=== PATIENT | female | born 1960 | race Caucasian/White ===

== ENCOUNTER → 2019-02-23 | Outpatient (CLI) | payer OTHER ==
[~2019-02-23] MED LIST: ASCO-178 PO; IBU800 PO; MOX400 PO; OSPE60TA2 PO; PARO-242 PO; PER PO; PRED20TA6 PO; TRAZ50TA34 PO; ULT PO; ZOL5 PO
[2019-02-23 08:17] LABS: PLATELET COUNT, AUTOMATED 259 K/uL (150-450)
== END ==
LOC: LAB 08:07
PROVIDERS: ATTEND Obstetrics & Gynecology
DX: R53.83 Other fatigue (principal)
CPT/HCPCS: 36415; 82040; 82247; 82310; 82374; 82435; 82465; 82565; 82607; 82746; 82947; 83718; 84075; 84132; 84155; 84295; 84443; 84450; 84460; 84478; 84520; 85025

== ENCOUNTER → 2019-03-16 | Outpatient (CLI) | payer OTHER ==
[~2019-03-16] MED LIST changes: -TRAZ50TA34 PO; +TRAZ50TA52 PO
--- NOTE | 2019-03-16 14:09 | RADIOLOGY IMAGING REPORT ---
FACILITY: [facility] [place] PATIENT NAME: Hailey Nolen : 1960 MR: [id number] V: [id number] EXAM DATE: ORDERING PHYSICIAN: JIMMY SNIDER TECHNOLOGIST: Location: [facility] Patient: Hailey Nolen : 1960 Visit/Account:[id number] Date of Sevice: 03/16/2019 MR SPINE LUMBAR W/O CON COMPARISON: None Additional pertinent history: Left leg radiculopathy Technique: Multiplanar multisequence lumbar spine MRI was performed without gadolinium enhancement. FINDINGS: Vertebral body heights and alignment: Mild grade 1 anterior listhesis of L4 on L5. Vertebral marrow signal: Negative. Distal thoracic cord and conus: Negative. The conus ends at L1. Surrounding soft tissues: Negative. Inspection of the disc spaces reveal the following: L5-S1: Posterior broad-based disc protrusion with facet hypertrophic changes. Mild bilateral neural f oraminal narrowing without canal stenosis. L4-L5: Mild grade 1 anterior listhesis of L4 on L5. Circumferential disc bulging with facet hypertrop hic changes. Mild bilateral neural foraminal narrowing with mild canal stenosis. L3-L4: Posterior broad-based disc protrusion with facet hypertrophic changes. No significant canal or neural foraminal narrowing. L2-L3: Negative. L1-L2: Minimal circumferential disc bulging without significant canal or neural foraminal narrowing. T12-L1: Negative. IMPRESSION: 1. Multilevel spondylitic change as discussed above. 2. Findings felt to be potentially most significant at L4-L5 with mild bilateral neural foraminal bambi rowing and mild canal stenosis. Report Dictated By: Galo Kenney MD at 03/16/2019 2:03 PM Report E-Signed By: Galo Kenney MD at 03/16/2019 2:06 PM WSN:[id number]
== END ==
LOC: MRI 00:34
PROVIDERS: ATTEND Orthopaedic Surgery
DX: M48.061 Spinal stenosis, lumbar region without neurogenic claudication (principal)
CPT/HCPCS: 72148

== ENCOUNTER → 2019-05-17 | Outpatient (CLI) | payer OTHER ==
[~2019-05-17] MED LIST changes: +SCOP1PAT2 TD
--- NOTE | 2019-05-17 13:58 | RADIOLOGY IMAGING REPORT ---
FACILITY: [facility] PATIENT NAME: ALYX PAREKH : [id number] MR: [id number] V: [id number] EXAM DATE: [id number] ORDERING PHYSICIAN: MARCO MARSHALL TECHNOLOGIST: Josee Gilmore PROCEDURE: BILATERAL DIGITAL SCREENING MAMMOGRAM WITH CAD ASSISTED INTERPRETATION & 3D TOMOSYNTHESIS REASON FOR STUDY: Screening. FAMILY HISTORY OF BREAST CANCER: Paternal grandmother in her 50's & paternal aunt in her 70's. BREAST PROCEDURES/TREATMENTS: Benign surgical biopsy of the Right breast. COMPARISON: 11/04/17, 08/14/16, 07/26/15, 05/26/13. VIEWS OBTAINED: Bilateral 2D & 3D full field CC & MLO projections. BREAST DENSITY: There are scattered areas of fibroglandular density throughout the breasts. MAMMOGRAM FINDINGS: The parenchymal pattern has remained stable allowing for difference in mammographic technique & patient positioning. IMPRESSION: BIRADS 1: Negative. DIAGNOSTIC CATEGORY 1--NEGATIVE. RECOMMENDATIONS: ROUTINE MAMMOGRAM AND CLINICAL EVALUATION. Dictated by: Fide Szymanski M.D. on 05/17/2019 at 13:14 Transcribed by: AURE on 05/17/2019 at 13:32 Approved by: Fide Szymanski M.D. on 05/17/2019 at 13:53 [facility]
== END ==
LOC: MAMO 04:06
PROVIDERS: ATTEND Obstetrics & Gynecology
DX: Z12.31 Encounter for screening mammogram for malignant neoplasm of breast (principal)
CPT/HCPCS: 77063; 77067